=== PATIENT | male | born 1990 | race African-American/Black ===

== ENCOUNTER 2016-07-27 18:33 | Emergency (ER) | payer SELFPAY ==
[~2016-07-27] VITALS: Wt 88.0 kg
[2016-07-27] MEDS ORDERED: NAPROSYN500 MG PO (21:19)
[2016-07-27] MEDS ORDERED: CYCLOBENZAPRINE5 M3 PO (21:19)
== END 2016-07-27 21:23 | disposition home or self-care (01) ==
LOC: ED 18:33
DX: G44.219 Episodic tension-type headache, not intractable (principal)

== ENCOUNTER 2017-08-04 22:01 | Emergency (ER) | payer SELFPAY ==
[~2017-08-04] VITALS: Ht 187.9 cm; Wt 84.8 kg
[~2017-08-04 22:01] MED LIST: CYCLOBENZAPRINE5 M3 PO; NAPROSYN500 MG PO
[2017-08-04 22:32] LABS: BASO # 0.1 10*3/uL (0.0-0.1); BASO % 0.9 % (0.0-1.0); EOS # 0.1 10*3/uL (0.0-0.4); HEMATOCRIT 47.9 % (42.0-52.0); HEMOGLOBIN 15.2 g/dl (14.0-18.0); LYMPH % 30.6 % (27.0-41.0); MEAN CELL VOLUME 87.1 fl (80.0-94.0); MEAN CORPUSCULAR HGB 27.6 pg (27.0-31.0); MEAN CORPUSCULAR HGB CONC 31.7 g/dl (33.0-37.0); MEAN PLATELET VOLUME 11.8 fl (9.6-12.3); MONO # 0.6 10*3/uL (0.1-1.0); MONO % 8.6 % (3.0-9.0); NEUT # 3.8 10*3/uL (2.3-7.9); NEUT % 57.7 % (47.0-73.0); PLATELET COUNT AUTOMATED 161 10*3/uL (130-400); RED CELL DISTRI WIDTH 13.3 % (0-14.5); WHITE BLOOD COUNT 6.6 10*3/uL (4.8-10.8)
[2017-08-04 22:47] LABS: ALBUMIN 4.2 gm/dl (3.1-4.5); ALKALINE PHOSPHATASE 93 U/L (45-117); BUN 9 mg/dl (7-24); CHLORIDE 104 mmol/L (98-107); CREATININE 1.31 mg/dL (0.70-1.30); POTASSIUM 4.2 mmol/L (3.5-5.1); SGOT/AST 30 IU/L (3-35); SGPT/ALT 30 U/L (12-78); SODIUM 139 mmol/L (136-145); TOTAL PROTEIN 7.7 gm/dL (6.4-8.2)
== END 2017-08-05 01:13 | disposition home or self-care (01) ==
LOC: ED 22:01
PROVIDERS: Nurse Practitioner Family
DX: R51 Headache (principal); Z90.89 Acquired absence of other organs; Z88.0 Allergy status to penicillin; Z88.8 Allergy status to other drugs, medicaments and biological substances

== ENCOUNTER → 2017-11-27 | Outpatient (CLI) | payer SELFPAY | END | disposition home or self-care (01) | LOC: RESCLI 01:50 | DX: E66.3 Overweight (principal); G43.009 Migraine without aura, not intractable, without status migrainosus ==

== ENCOUNTER 2017-12-20 02:48 | Emergency (ER) | payer SELFPAY ==
[~2017-12-20] VITALS: Ht 187.9 cm; Wt 81.6 kg
== END 2017-12-20 06:38 | disposition home or self-care (01) ==
LOC: ED 02:48
DX: S00.81XA Abrasion of other part of head, initial encounter (principal); M25.512 Pain in left shoulder; M79.641 Pain in right hand; Z88.0 Allergy status to penicillin; Z88.8 Allergy status to other drugs, medicaments and biological substances; W01.0XXA Fall on same level from slipping, tripping and stumbling without subsequent striking against object, initial encounter; Y93.39 Activity, other involving climbing, rappelling and jumping off; Y92.89 Other specified places as the place of occurrence of the external cause; Y99.8 Other external cause status

== ENCOUNTER → 2018-01-01 | Outpatient (CLI) | payer SELFPAY | END | disposition home or self-care (01) | LOC: RESCLI 03:30 | DX: F07.81 Postconcussional syndrome (principal); H53.8 Other visual disturbances; G43.009 Migraine without aura, not intractable, without status migrainosus ==

== ENCOUNTER 2022-01-24 19:46 | Emergency (ER) | payer SELFPAY ==
[~2022-01-24] VITALS: Ht 187.9 cm; Wt 80.7 kg
== END 2022-01-24 20:14 | disposition home or self-care (01) ==
LOC: ED 19:46
DX: S05.02XA Injury of conjunctiva and corneal abrasion without foreign body, left eye, initial encounter (principal); Z88.0 Allergy status to penicillin; Z88.8 Allergy status to other drugs, medicaments and biological substances; Z90.89 Acquired absence of other organs; X58.XXXA Exposure to other specified factors, initial encounter; Y93.89 Activity, other specified; Y92.89 Other specified places as the place of occurrence of the external cause; Y99.8 Other external cause status

== ENCOUNTER 2022-12-06 10:58 | Emergency (ER) | payer SELFPAY ==
[~2022-12-06] VITALS: Ht 185.4 cm; Wt 80.3 kg
[2022-12-06] MEDS ORDERED: ACYCLOVIR400 MG PO (12:03)
[2022-12-06] MEDS ORDERED: Econopred Plus 15 ML OPH (12:04)
== END 2022-12-06 15:09 | disposition home or self-care (01) ==
LOC: ED 10:58
DX: M79.645 Pain in left finger(s) (principal); Z88.0 Allergy status to penicillin; Z88.8 Allergy status to other drugs, medicaments and biological substances; Z90.89 Acquired absence of other organs